=== PATIENT | male | born 1995 | race Two or more races ===

== ENCOUNTER 2021-11-14 18:25 | Emergency (ER) | payer OTHER ==
[~2021-11-14] VITALS: Ht 167.6 cm; Wt 63.5 kg
== END 2021-11-14 19:18 | disposition home or self-care (01) ==
LOC: ER 18:25
DX: S80.271A Other superficial bite of right knee, initial encounter (principal); W57.XXXA Bitten or stung by nonvenomous insect and other nonvenomous arthropods, initial encounter; Y93.89 Activity, other specified; Y92.832 Beach as the place of occurrence of the external cause; Y99.8 Other external cause status